=== PATIENT | female | born 2000 | race Caucasian/White ===

== ENCOUNTER 2019-02-12 23:47 | Emergency (ER) | payer OTHER ==
[~2019-02-12] VITALS: Ht 149.9 cm; Wt 72.1 kg
[2019-02-12 23:54] VITALS: BP 119/73
== END 2019-02-13 00:10 | disposition short-term general hospital (02) ==
LOC: ER 23:47
DX: O26.893 Other specified pregnancy related conditions, third trimester (principal); Z3A.39 39 weeks gestation of pregnancy; Z98.890 Other specified postprocedural states